=== PATIENT | female | born 1950 ===

== ENCOUNTER 2018-02-24 18:05 | Emergency (ER) | payer SELFPAY ==
[~2018-02-24] VITALS: Ht 170.2 cm; Wt 87.0 kg
[2018-02-24] MEDS ORDERED: SODIUM CHLORIDE 0.9% 1,000 ML IV ONE (18:37)
[2018-02-24 20:56] LABS: BASOPHILS % 0.5 % (0.0-2.0); EOSINOPHILS % 0.8 % (0.0-5.0); HEMATOCRIT. 35.5 % (36.0-48.0); HEMOGLOBIN. 11.6 g/dL (12.0-16.0); LYMPHOCYTES % 15.7 % (20.0-50.0); MEAN CORPUSCULAR HEMOGLOBIN 30.1 pg (28.0-32.0); MEAN CORPUSCULAR VOLUME 91.8 fL (81.0-99.0); MONOCYTES % 11.8 % (2.0-8.0); NEUTROPHILS % 71.2 % (40.0-76.0); PLATELET 214 x1000/uL (130-400); RED BLOOD CELL COUNT 3.87 mill/uL (4.2-5.4)
[2018-02-24 21:03] LABS: CHLORIDE 107 mEq/L (98-107)
[2018-02-24] MEDS ORDERED: ONDANSETRON HCL 4MG/2ML VIAL IV ONE (21:15)
[2018-02-24 22:30] VITALS: BP 159/88
== END 2018-02-24 22:30 | disposition home or self-care (01) ==
LOC: ER 18:05
DX: R11.2 Nausea with vomiting, unspecified (principal); R42 Dizziness and giddiness; R53.1 Weakness; I10 Essential (primary) hypertension; Z90.89 Acquired absence of other organs
CPT/HCPCS: 36415; 71045; 80053; 85025; 86850; 86900; 86901; 93005; 96374; 99285; J2405; J7030; 96361